=== PATIENT | male | born 1965 | race African-American/Black ===

== ENCOUNTER 2016-07-15 10:33 | Emergency (ER) | payer MEDICAID ==
[~2016-07-15] VITALS: Ht 190.5 cm; Wt 117.9 kg
[2016-07-15 10:52] VITALS: BP 143/78
== END 2016-07-15 12:48 | disposition home or self-care (01) ==
LOC: ER 10:34
DX: L08.9 Local infection of the skin and subcutaneous tissue, unspecified (principal); S90.861A Insect bite (nonvenomous), right foot, initial encounter; E11.9 Type 2 diabetes mellitus without complications; W59.01XA Bitten by nonvenomous lizards, initial encounter; Y93.89 Activity, other specified; Y99.8 Other external cause status; Y92.89 Other specified places as the place of occurrence of the external cause